=== PATIENT | male | born 1955 | race Caucasian/White ===

== ENCOUNTER 2016-07-10 05:53 | Day surgery (SDC) | payer SELFPAY ==
--- NOTE | 2016-07-09 15:19 | HP ---
CHIEF COMPLAINT: Left hand pain. HISTORY OF PRESENT ILLNESS: Mr. Flynn is a 61-year-old male with a history of an injury that he sustained about two weeks ago. Apparently he had a laceration and fracture at that time. He was seen in an outside hospital and transferred to [place]. He states that at [place], they put some white brown liquid on the wound, which sounds as though it was Betadine, and ultimately sutured the wound. There was no attempt to fix the fracture definitively. He was seen by Dr. Moreno and Dr. Moreno called me for assistance with that. On presentation today, he states he has no sensation in the digit distal to the lacerations. He has no other injury associated with this. Per his report, he has had antibiotic and tetanus, although he is unsure of exactly what he had. PAST SURGICAL HISTORY: 1. Rotator cuff repair. 2. Knee surgery. MEDICATIONS: None. ALLERGIES: NO KNOWN DRUG ALLERGIES. CODE STATUS: Full code. IMMUNIZATIONS: Up to date. SOCIAL HISTORY: The patient does not drink or use any illicit drugs. He does smoke. FAMILY HISTORY: None pertinent to today's complaint. REVIEW OF SYSTEMS: Negative except as indicated in the History of Present Illness. PHYSICAL EXAMINATION: VITAL SIGNS: Blood pressure 153/87. Pulse 55. Height 5'8". Weight 168. MENTAL STATUS: The patient is awake, alert, and is able to give a good history and participate in the physical. The patient is oriented to person, place and time. SKIN: Normal tone and turgor. MUSCULOSKELETAL: He has a large laceration extending from the ulnar aspect over the dorsum and into the volar aspect of the proximal third phalanx. Grossly, sensation is absent throughout the digit, both radially and ulnarly. Although there does not appear to be any gross purulence or erythema involving the wound, there is some significant amount of crusted blood. He has what looks like grease in the area although there is no appearance of grease in the wound. He does have a small amount of motion in the digits although because of the displacement of the fracture, he is unable to flex and extend the digits. IMAGING: X-rays show a displaced essentially transverse fracture of the proximal phalanx involving the proximal one-third of the shaft. ASSESSMENT: 1. Proximal phalanx fracture with severe angulation and probable previous open fracture. PLAN: Because of the severe angulation of this and the impossible nature to reduce it here in the clinic, I think it would be prudent to take her to the Operating Room. Given his wound, I think it would be unlikely to be able to do an open reduction and internal fixation and we may actually have to go through the wound to effect a reduction if there is some buttonholing of the fracture through the tendon. I have talked to him about the possible function and significant stiffness that may develop secondary to the wound and the prolonged healing that may occur as well. He understands that. We have discussed the risks, benefits, and alternatives to that and the patient has given informed consent for I&D plus percutaneous pinning. #[id number] [facility]
--- NOTE | 2016-07-09 15:55 | RAD ---
Study: Frontal and Lateral Views of the Chest. Indication: Pre Surgery Comparison: None. Impression: Heart size normal. Lungs clear. No acute osseous abnormality. Electronically signed by: Iván Grace MD 07/09/2016 3:55 PM CDT
[2016-07-10] MEDS ORDERED: SODIUM CHL 0.9% 100ML MINI-BAG 100 ML IVPB ONE (06:17)
[2016-07-10] MEDS ORDERED: LACTATED RINGERS 1,000 ML IV ONE (06:17)
[2016-07-10] MEDS ORDERED: MIDAZOLAM INJ 5 MG/5 ML VIAL ONE (08:40)
[2016-07-10] MEDS ORDERED: MORPHINE SULFATE INJ 10 MG/ML VIAL ONE (08:40)
[2016-07-10] MEDS ORDERED: PROPOFOL 200 MG/20 ML VIAL IV ONE (09:00)
[2016-07-10] MEDS ORDERED: DEXAMETHASONE INJ 10 MG/ML VIAL ONE (09:00)
[2016-07-10] MEDS ORDERED: raNITIdine HCL INJ 25 MG/ML VIAL ONE (09:00)
[2016-07-10] MEDS ORDERED: ePHEDrine SULF 50 MG/ML ONE (09:00)
[2016-07-10] MEDS ORDERED: LIDOCAINE 1% 10 ML VIAL INJ ONE (09:00)
[2016-07-10] MEDS ORDERED: ONDANSETRON ODT 8 MG TAB ONE (09:00)
[2016-07-10] MEDS ORDERED: METOCLOPRAMIDE HCL INJ 10 MG/2 ML VIAL ONE (09:00)
[2016-07-10] MEDS ORDERED: ceFAZolin SODIUM 1 GM VIAL IVPB ONE (09:30)
[2016-07-10] MEDS ORDERED: SODIUM CHLORIDE 0.9% 250 ML BAG ONE (09:30)
[2016-07-10] MEDS ORDERED: VANCOMYCIN HCL INJ 1,000 MG VIAL IVPB ONE ×3 (09:30→10:50)
[2016-07-10] MEDS ORDERED: ceFAZolin SODIUM 1 GM VIAL ONE (09:30)
[2016-07-10] MEDS ORDERED: LIDOCAINE 1% 50 ML VIAL INJ ONE (09:30)
[2016-07-10] MEDS ORDERED: SODIUM CHLORIDE 0.9% 250ML 250 ML IVPB ONE (10:10)
[2016-07-10] MEDS ORDERED: ceFAZolin SODIUM 1 GM VIAL INJ ONE (10:50)
[2016-07-10] MEDS ORDERED: BACITRACIN 0.9 GM UD PCKT TOP ONE (11:48)
--- NOTE | 2016-07-10 12:14 | RAD ---
EXAM DESCRIPTION: Hand,Left 3 Views CLINICAL HISTORY: 61 years Male, Post-op IMPRESSION: 2 postoperative views pending of a transversely oriented proximal third phalanx fracture. Pins are appropriate position. Fracture fragments are aligned correctly. Electronically signed by: Leonard Leon MD 07/10/2016 12:14 PM CDT
[2016-07-10] MEDS ORDERED: ONDANSETRON INJ 4 MG/2 ML VIAL IV ONE (12:20)
[2016-07-10] MEDS ORDERED: HYDROcodone 5MG/APAP 325MG 1 EA TAB PO ONE (13:07)
[2016-07-10 13:37] VITALS: BP 160/69; TEMP 98.2; O2SAT 96
--- NOTE | 2016-07-11 10:10 | OP ---
DATE OF PROCEDURE: 07/10/16 PREOPERATIVE DIAGNOSIS: 1. Open fracture of third digit, left hand. POSTOPERATIVE DIAGNOSIS: 1. Open fracture of third digit, left hand. PROCEDURE: 1. I&D with percutaneous pinning. SURGEON: Rios Montano MD. FABRICATION LEAD: Nakul Quinn CST, SA-C. ANESTHESIA: General. COMPLICATIONS: None. FINDINGS: Severe soft tissue injury affecting the third digit with irregular laceration from the volar portion extending proximally along the proximal phalanx and dorsally to about the level of the MCP. There are additional lacerations involving the volar aspect of the second digit over the MCP joint. No gross purulence was noted. INDICATION: Mr. Flynn has a history of a fall that occurred about 2 weeks ago. At that time, he sustained a fracture and it is unclear the exact nature of it at that time as he was seen at an outside hospital. He was transferred to [place] and apparently there was an attempt at a reduction and his wound was closed. He was splinted, but presented to Dr. Moreno. Dr. Moreno did x-rays and it was noted that he had significant angulation of the fracture. The wounds were not adequately cleaned and there was grease on the rest of the hand. Because of these findings and the insufficient fixation of the fracture, I talked to him about I&D of the wound with at least provisional fixation of the fracture. After discussing the risks, benefits and alternatives to operative therapy, informed consent was obtained. We did talk further about potential for delayed healing, nonhealing, and even up to and including need for amputation of this digit if the wound did not heal or if there were other complications from it. They expressed full understanding of that. PROCEDURE: The patient was brought to the Operating Room and placed in the supine position. General anesthesia was induced and the arm was sterilely prepped and draped. After prepping and draping, the wound was examined fully and there was noted to be no gross contamination of the wound and there was no obvious purulence. There was some devitalized tissue at the wound edges which was debrided. After debridement, there was bleeding noted in that area. There was obvious severe volar angulation of the fracture. The flexor tendons were obvious within the wound and there was no apparent disruption of those tendons. After examination of the wound, the wound was very thoroughly irrigated. Attempts were made to pin the fracture in a crossed pattern, however, because of the transverse nature of the fracture and where the fracture was located, there was no way to fully stabilize it and, therefore, I had to pin it with a pin from distal to proximal through the distal phalanx. I was able to achieve one cross pin and, therefore, the fracture was amarjit in the coronal and sagittal planes. Following fracture fixation, the wound was very thoroughly irrigated and closed with care taken to reapproximate the skin edges, but not restrict the blood flow. Following that, the hand was placed in a splint. The patient was awoken from anesthesia and taken to Recovery. POSTOPERATIVE INSTRUCTIONS: Cultures were taken at the time of surgery. I am going to put him on prophylactic antibiotics until we get some culture results back from that. We will continue to monitor the wound and should he develop any complications that would indicate further surgery, we will do that at that time. #[id number] [facility]
== END 2016-07-10 13:35 | disposition home or self-care (01) ==
LOC: AMB 05:53 → EDSTATUS 10:15 → AMB 13:35
PROVIDERS: ATTEND Orthopaedic Surgery
DX: S62.613B Displaced fracture of proximal phalanx of left middle finger, initial encounter for open fracture (principal); R00.1 Bradycardia, unspecified; F17.200 Nicotine dependence, unspecified, uncomplicated; W19.XXXA Unspecified fall, initial encounter
CPT/HCPCS: 01830; 26735; 36415; 71020; 73130; 76000; 80048; 85025; 87070; 93005; J0690; J1100; J2250; J2270; J2405; J2765; J2780; J3370; J3490; J7050; J7120

== ENCOUNTER → 2016-07-19 | Outpatient (CLI) | payer SELFPAY ==
--- NOTE | 2016-07-19 14:35 | RAD ---
EXAM DESCRIPTION: Hand,Left 3 Views CLINICAL HISTORY: 61 years,Male,OPEN FX OF PHALANX OF FINGER LEFT. S62.601D COMPARISON: July 10, 2016 FINDINGS: The left hand demonstrates transverse fracture of the mid diaphysis of the third proximal phalanx fixated with two. In near-anatomic position. The fracture line still visible but no change in displacement since prior study. Overlying casting has been removed. . Soft tissues appear unremarkable. Remainder of the hand unremarkable IMPRESSION: Left hand third digit proximal phalanx demonstrates fixation of a transverse fracture with two hands without evidence of change in the minimal to no displacement since prior study. And interval removal of the cast but the fracture line is still readily visible. Electronically signed by: Liu Swift MD 07/19/2016 2:34 PM CDT
== END | disposition home or self-care (01) ==
LOC: RAD 07:51
PROVIDERS: ATTEND Orthopaedic Surgery
DX: S62.601D Fracture of unspecified phalanx of left index finger, subsequent encounter for fracture with routine healing (principal)

== ENCOUNTER → 2016-08-05 | Outpatient (CLI) | payer SELFPAY ==
--- NOTE | 2016-08-05 09:24 | RAD ---
EXAM DESCRIPTION: Hand,Left 3 Views CLINICAL HISTORY: 61 years Male, FX OF FINGER IMPRESSION: Two pins traverse a transversely oriented fracture of the proximal diaphysis of the proximal phalanx of third digit there is been no interval healing. Little if any associated callus formation. No osteolysis surrounding the tendons. Days exam is compared to multiple studies in July 2016. Electronically signed by: Leonard Leon MD 08/05/2016 9:23 AM CDT
== END ==
LOC: RAD 07:53
PROVIDERS: ATTEND Orthopaedic Surgery
DX: S62.601D Fracture of unspecified phalanx of left index finger, subsequent encounter for fracture with routine healing (principal)

== ENCOUNTER → 2016-08-15 | Outpatient (CLI) | payer SELFPAY ==
--- NOTE | 2016-08-16 10:24 | RAD ---
EXAM DESCRIPTION: Hand,Left 3 Views CLINICAL HISTORY: OPEN FX- INDEX FINGER COMPARISON: August 05, 2016 TECHNIQUE: AP, LATERAL, AND OBLIQUE FINDINGS: Three-view left hand shows no fracture or dislocation. A single longitudinal pin through the third proximal phalanx remains in place with the oblique pin removed. Fracture is not significantly healed with only minimal callus formation noted at the radial aspect. Alignment remains anatomic. No abnormalities elsewhere within the hand are not apparent IMPRESSION: 1. Persistent internal fixation of the third proximal phalanx with a single pin and incomplete healing of transverse fracture of the shaft. Electronically signed by: Jeffrey Davis MD 08/16/2016 10:22 AM CDT
== END ==
LOC: RAD 07:31
PROVIDERS: ATTEND Orthopaedic Surgery
DX: S62.601D Fracture of unspecified phalanx of left index finger, subsequent encounter for fracture with routine healing (principal)

== ENCOUNTER → 2016-08-21 | Outpatient (CLI) | payer SELFPAY ==
--- NOTE | 2016-08-21 10:14 | RAD ---
EXAM DESCRIPTION: Hand,Left 3 Views CLINICAL HISTORY: FX COMPARISON: August 15, 2016 TECHNIQUE: AP, LATERAL, AND OBLIQUE FINDINGS: Three-view left hand shows no fracture or dislocation. Transverse fracture of the third proximal phalanx remains in essentially anatomic alignment with minimal bridging callus formation noted at the radial aspect of the fracture. A single pin remains in place and unchanged from examination six days earlier with persistent anatomic alignment. The crossing pins are no longer present. The fracture is incompletely healed on AP and oblique views and less well appreciated but appears lucent on the lateral view with overlying other bony structures. IMPRESSION: 1. Internal fixation of third proximal phalanx with incompletely healed transverse fracture of the midshaft 2. Remainder the hand is moderately degenerative without additional injuries noted Electronically signed by: Jeffrey Davis MD 08/21/2016 10:14 AM CDT
== END | disposition home or self-care (01) ==
LOC: RAD 07:25
PROVIDERS: ATTEND Orthopaedic Surgery
DX: S62.601D Fracture of unspecified phalanx of left index finger, subsequent encounter for fracture with routine healing (principal)

== ENCOUNTER → 2016-09-09 | Outpatient (CLI) | payer SELFPAY ==
--- NOTE | 2016-09-09 09:15 | RAD ---
EXAM DESCRIPTION: Hand,Left 3 Views CLINICAL HISTORY: OPEN FX OF PHALANX OF FINGER(UNSPECIFIED PHALANX OF LT INDEX FIN) COMPARISON: August 21, 2016 TECHNIQUE: AP, LATERAL, AND OBLIQUE FINDINGS: Three views of the left hand show removal of the wire pin across the transverse fracture of the third proximal phalanx with stable alignment on the AP view and some bridging callus formation medially but incomplete bony union evident. On the lateral view slight increase in dorsal angulation of the distal fragment is evident in comparison to previous study with the pin in place. Very little change or progression in healing is evident since study August 21, 2016. IMPRESSION: 1. Normal removal of intramedullary pin involving the third proximal phalanx. 2. Incomplete bony union with increased dorsal angulation of the distal shaft fragment on the lateral view compared to prior study with stable with essentially anatomic alignment on the AP view. Electronically signed by: Jeffrey Davis MD 09/09/2016 9:13 AM CDT
== END | disposition home or self-care (01) ==
LOC: RAD 08:11
PROVIDERS: ATTEND Orthopaedic Surgery
DX: S62.601D Fracture of unspecified phalanx of left index finger, subsequent encounter for fracture with routine healing (principal)

== ENCOUNTER → 2016-09-30 | Outpatient (CLI) | payer SELFPAY ==
--- NOTE | 2016-09-30 16:32 | RAD ---
EXAM DESCRIPTION: Hand,Left 3 Views CLINICAL HISTORY: OPEN FX OF PHALANX OF [id number] COMPARISON: September 09, 2016 TECHNIQUE: AP, LATERAL, AND OBLIQUE FINDINGS: Three-view left hand shows no fracture or dislocation. Left hand appears very little different than previously seen with slight further maturation of minimal callus along the radial aspect of the third proximal phalanx with residual transverse fracture line through the proximal phalanx of the long finger as well as deformity of the finger and/or flexion contracture at the PIP joint distal to the fracture line. Mild dorsal angulation at the fracture site on the oblique and lateral view is unchanged with a tiny amount of increasing callous formation noted in comparison to study three weeks earlier New fracture or other abnormality is not apparent IMPRESSION: 1. Slight further maturation of callus at the third proximal phalangeal shaft fracture with persistent dorsal angulation and residual lucency consistent with incomplete bony union. 2. New fracture or additional abnormality not apparent. Electronically signed by: Jeffrey Davis MD 09/30/2016 4:31 PM CDT
== END | disposition home or self-care (01) ==
LOC: RAD 07:49
PROVIDERS: ATTEND Orthopaedic Surgery
DX: S62.601D Fracture of unspecified phalanx of left index finger, subsequent encounter for fracture with routine healing (principal); X58.XXXA Exposure to other specified factors, initial encounter

== ENCOUNTER → 2016-11-22 | Outpatient (CLI) | payer SELFPAY ==
--- NOTE | 2016-11-25 08:10 | RAD ---
Frontal, lateral, and oblique views of the left hand. Indication:FX Comparison: September 30, 2016. IMPRESSION: Previously noted fracture of the third proximal phalanx shaft redemonstrated with stable alignment. Minimal progressive healing noted. The majority of the fracture is ununited with sclerotic fracture margins suggesting nonunion. No new fracture. Degenerative changes throughout the hand and wrist appear stable compared to the prior examination. Electronically signed by: Iván Grace MD 11/25/2016 8:09 AM CDT
== END | disposition home or self-care (01) ==
LOC: RAD 07:43
PROVIDERS: ATTEND Orthopaedic Surgery
DX: S62.601D Fracture of unspecified phalanx of left index finger, subsequent encounter for fracture with routine healing (principal)

== ENCOUNTER → 2016-12-03 | Day surgery (SDC) | payer SELFPAY ==
--- NOTE | 2016-11-22 09:59 | RAD ---
Study: Frontal and Lateral Views of the Chest. Indication: SURGERY AT 12/03/16 Comparison: July 09, 2016. IMPRESSION: Heart size upper limits of normal without failure. Lung volumes low with mild bibasilar atelectasis, otherwise lungs clear. No acute osseous abnormality. Electronically signed by: Iván Grace MD 11/22/2016 9:58 AM CDT
[~2016-12-03] MED LIST: LACTATED RINGERS 1,000 ML ONE; SODIUM CHL 0.9% 100ML MINI-BAG 100 ML IVPB ONE; VANCOMYCIN HCL INJ 1,000 MG VIAL IVPB ONE; ceFAZolin SODIUM 1 GM VIAL ONE
[2016-12-03 07:16] VITALS: BP 156/78; TEMP 98.4; O2SAT 97
== END ==
LOC: AMB 02:37
PROVIDERS: ATTEND Orthopaedic Surgery
DX: M24.642 Ankylosis, left hand (principal); J98.11 Atelectasis; Z53.9 Procedure and treatment not carried out, unspecified reason
CPT/HCPCS: 71020; 80048; 85025; 87070; 93005; J0690; J7050; J7120

== ENCOUNTER 2016-12-31 05:28 | Day surgery (SDC) | payer SELFPAY ==
[2016-12-31] MEDS ORDERED: LACTATED RINGERS 1,000 ML ONE (06:04)
[2016-12-31] MEDS ORDERED: ceFAZolin SODIUM 1 GM VIAL ONE (06:25)
[2016-12-31] MEDS ORDERED: SODIUM CHL 0.9% 100ML MINI-BAG 100 ML IVPB ONE (06:25)
[2016-12-31] MEDS ORDERED: fentaNYL CITRATE INJ 50 MCG/ML AMP ONE (06:30)
[2016-12-31] MEDS ORDERED: PROPOFOL 200 MG/20 ML VIAL IV ONE (07:00)
[2016-12-31] MEDS ORDERED: ePHEDrine SULF 50 MG/ML ONE (07:00)
[2016-12-31] MEDS ORDERED: ATROPINE SULFATE 0.4 MG/ML 1ML VIAL ONE (07:00)
[2016-12-31] MEDS ORDERED: LIDOCAINE 1% 50 ML VIAL INJ ONE (09:40)
[2016-12-31] MEDS: ceFAZolin SODIUM 1 GM VIAL ONE ×2 (09:48→10:10)
[2016-12-31] MEDS: VANCOMYCIN HCL INJ 1,000 MG VIAL IVPB ONE ×2 (09:48→10:10)
[2016-12-31] MEDS: MORPHINE SULFATE INJ 10 MG/ML VIAL ONE ×3 (11:05→11:15)
[2016-12-31] MEDS ORDERED: HYDROcodone 5MG/APAP 325MG 1 EA TAB ONE (12:03)
[2016-12-31 13:53] VITALS: BP 134/74; TEMP 96.7; O2SAT 98
--- NOTE | 2017-01-01 08:02 | OP ---
DATE OF PROCEDURE: 12/31/16 PREOPERATIVE DIAGNOSIS: 1. 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 POSTOPERATIVE DIAGNOSIS: 1. 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 PROCEDURE: 1. Amputation of left third digit. SURGEON: Rios Montano MD. FASHION DIRECTOR [employer] PLAN SALES: Nakul Quinn CST, SA-C. ANESTHESIA: General anesthesia. COMPLICATIONS: None. FINDINGS: Nixon has a history of an open fracture. He had complicated course. He had initially had this managed at [place]. Unfortunately, there was either miscommunication or some other issues and he never followed up there. He came to me with a very dirty wound and the fracture was unstable. As such, we tried to save the finger through I&D as well as percutaneous pinning. While that was successful, it did take quite a while for the fracture itself to start to unit. Unfortunately, he had developed a severe amount of stiffness secondary to the delay. Because of that, he had almost no motion in the PIP and DIP joints and very limited motion in the MCP joints. He also developed a slight rotational deformity. Because of all of these issues, Nixon has requested the quickest way for him to get back to activities. Unfortunately, I do not think there would be any chance to get him full range of motion in any of the joint of that digit. As such, we talked about options which would include amputation. After discussing the risks, benefits and alternatives to that, he gave informed consent for amputation. PROCEDURE: The patient was brought to the Operating Room and placed in supine position. General anesthesia was induced. The patient's arm was sterilely prepped and draped. Following prepping and draping, an incision was made at the proximal one-third of the proximal interphalangeal joint. The digital arteries and nerves were identified, cauterized and transected. The proximal interphalangeal joint was isolated and transected at the metacarpophalangeal joint. Once that had been accomplished, the head of the metacarpal was debrided from cartilage. After that, the wound was very thoroughly irrigated. The skin was closed over the defect without any undue tension. Sterile dressing was placed. The patient was awoken from anesthesia and taken to Recovery. POSTOPERATIVE INSTRUCTIONS: He will followup with us in the clinic in two days. We will encourage him to do range of motion with the digits so as to no develop any stiffness at that time. #[id number] [facility]
== END 2016-12-31 13:00 | disposition home or self-care (01) ==
LOC: AMB 05:28
PROVIDERS: ATTEND Orthopaedic Surgery
DX: S62.613 Displaced fracture of proximal phalanx of left middle finger (principal); M25.642 Stiffness of left hand, not elsewhere classified; K21.9 Gastro-esophageal reflux disease without esophagitis; Z88.8 Allergy status to other drugs, medicaments and biological substances; Z79.899 Other long term (current) drug therapy
CPT/HCPCS: 01830; 26951; J0690; J2270; J3010; J3370; J3490; J7050; J7120